=== PATIENT | female | born 1980 | race American Indian/Alaskan Native ===

== ENCOUNTER 2021-08-20 08:17 | Emergency (ER) | payer SELFPAY ==
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
[2021-08-20] MEDS ORDERED: NEOMY 3.5 MG/BACIT 400 UNITS/POLY B 5000 UNITS/GM OINT PACKET TP SCH (09:00)
[2021-08-20] MEDS ORDERED: HYDROcodone/ACETAMINOPHEN 5-325 MG TAB PO SCH (09:00)
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
[2021-08-20 10:33] VITALS: BP 149/87
== END 2021-08-20 10:34 | disposition home or self-care (01) ==
LOC: ED 08:17
DX: S02.2XXA Fracture of nasal bones, initial encounter for closed fracture (principal); Y04.8XXA Assault by other bodily force, initial encounter; Y93.89 Activity, other specified; Y92.89 Other specified places as the place of occurrence of the external cause; Y99.8 Other external cause status
CPT/HCPCS: 70486; 99283; A6250